=== PATIENT | male | born 1960 | race Caucasian/White ===

== ENCOUNTER 2018-04-15 15:47 | Inpatient (IN) | payer OTHER ==
[~2018-04-15] VITALS: Ht 175.3 cm; Wt 100.7 kg
[~2018-04-15 15:47] MED LIST: AMLODIPINE BESY10 MG PO; CATAPRES0.2 MG TRANSDERM; CIPRO500 MG PO; FLAGYL500 MG PO; HYDROCHLOROTH12.5 M1 PO; MULTIVITAMINS PO; PHENERGAN 25 MG25 MG PO; VICODIN 5-5001 EACH PO
[2018-04-15 15:53] VITALS: BP 131/93
[2018-04-15 16:30] LABS: ABSOLUTE BASOPHILS 0.1 thou/uL (0.0-0.2); ABSOLUTE MONOCYTES 0.9 thou/uL (0.0-1.2); ABSOLUTE NEUTROPHILS 10.9 thou/uL (1.6-8.1); BASOPHILS 0.8 %; EOSINOPHILS 0.3 %; LYMPHOCYTES 14.4 %; MCH 29.3 pg (26.0-34.0); MCHC 34.1 g/dL (28.0-37.0); MCV 85.8 fL (80.0-100.0); MONOCYTES 6.2 %; MPV 7.7 fl. (7.2-11.1); NUCLEATED RBCS 0 /100WBC; PLATELET COUNT* 309 thou/uL (150-400); POLYS 78.3 %; RBC 5.48 mil/uL (4.50-6.00); RDW-CV 14.3 % (10.5-14.5); WBC 13.9 thou/uL (4.0-11.0)
[2018-04-15 16:42] LABS: CREATININE 1.2 mg/dL (0.6-1.3)
[2018-04-15 16:47] LABS: ALBUMIN 3.9 g/dL (3.4-5.0); TOTAL BILIRUBIN 0.4 mg/dL (<0.1-1.0); TOTAL PROTEIN 7.6 g/dL (6.4-8.2)
[2018-04-15 19:40] LABS: URINE BILIRUBIN NEGATIVE (Negative); URINE BLOOD 1+ (Negative); URINE CLARITY CLEAR; URINE COLOR YELLOW; URINE GLUCOSE-RANDOM NEGATIVE (Negative); URINE KETONES 1+ (Negative); URINE LEUKOCYTES-REFLEX NEGATIVE (Negative); URINE NITRITE-REFLEX NEGATIVE (Negative); URINE PROTEIN NEGATIVE (Negative); URINE SPECIFIC GRAVITY 1.025 (1.005-1.030); URINE UROBILINOGEN 0.2 E.U./dl (0.2-1.0)
[2018-04-15 19:48] LABS: BACTERIA-REFLEX None Seen /HPF (None Seen); CASTS None Seen /LPF (None Seen); CRYSTALS None Seen /LPF (None Seen); SQUAMOUS 4-10 Moderate /LPF (0-3); URINE RBC 3-10 Few /HPF (0-2); URINE WBC-REFLEX None Seen /HPF (0-5)
[2018-04-15 22:05] VITALS: BP 131/78
[2018-04-15 22:29] LABS: INFLUENZA A ANTIGEN None Detected (None Detect); INFLUENZA B ANTIGEN None Detected (None Detect)
[2018-04-15 23:47] VITALS: BP 125/84
[2018-04-16 04:12] LABS: HEMATOCRIT 41.8 % (42.0-52.0); HEMOGLOBIN 14.1 gm/dL (14.0-18.0); MCH 29.6 pg (26.0-34.0); MCHC 33.9 g/dL (28.0-37.0); MCV 87.3 fL (80.0-100.0); MPV 7.5 fl. (7.2-11.1); NUCLEATED RBCS 0 /100WBC; PLATELET COUNT* 269 thou/uL (150-400); RBC 4.78 mil/uL (4.50-6.00); RDW-CV 13.9 % (10.5-14.5); WBC 10.5 thou/uL (4.0-11.0)
[2018-04-16 04:19] LABS: CALCIUM 8.2 mg/dL (8.5-10.1); CREATININE 1.1 mg/dL (0.6-1.3); POTASSIUM 3.3 mmol/L (3.5-5.1)
[2018-04-16] MEDS ORDERED: GLUCOSAMINE HC500 MG PO (05:03)
--- NOTE | 2018-04-16 05:46 | NUR ---
REPORT RECIEVED FROM ED. PT ADMITTED TO ROOM 108. CALL LIGHT SHOWN, FALL AGREEMENT WENT OVER, PT STATED UNDERSTANDING. ADMISSION DOCUMENTED. MEDS GIVEN PER E-MAR. IV PATENT, FLUIDS INFUSING. PICTURE OF CAT BITE TAKEN. WOUND CLEANED WITH WOUND CLEANSER. PT STATES THAT HE WAS CLEANING IT WITH HYDROGEN PEROXIDE AND ALCOHOL THEN APPLYING NEOSPORIN AT HOME. PT ALSO STATES HE TAKES AGELESS MALE SUPPLEMENT AT HOME, UNABLE TO ADD TO HOME MED LIST. WILL CONTINUE WITH PLAN OF CARE.
[2018-04-16 06:48] LABS: ABSOLUTE MONOCYTES 0.6 thou/uL (0.0-1.2); ABSOLUTE NEUTROPHILS 7.9 thou/uL (1.6-8.1)
[2018-04-16 06:53] LABS: ANISOCYTOSIS 1+; LARGE PLATELETS OCCASIONAL; PLATELET ESTIMATE ADEQUATE
[2018-04-16 08:30] VITALS: BP 141/98
--- NOTE | 2018-04-16 18:07 | NUR ---
PATIENT ALERT AND ORIENTED X 4. VITAL SIGNS STABLE ON ROOM AIR. UP AD KRISTIAN IN ROOM AND AMBULATING IN HALLWAY. DENIES NAUSEA. PATIENT STATES HE HAS SOME PAIN, BUT NOT ENOUGH TO NEED PAIN MEDICATION. IV PATENT WITH FLUIDS INFUSING. ANTIBIOTICS GIVEN PER EMAR. HOURLY ROUNDS MAINTAINED THROUGHOUT THE SHIFT. CALL LIGHT WITHIN REACH. NURSING WILL CONTINUE TO MONITOR.
[2018-04-16 19:56] VITALS: BP 134/80
[2018-04-17 04:16] VITALS: BP 143/100
--- NOTE | 2018-04-17 04:23 | NUR ---
PT REMAINED ALERT AND ORIENTED. PT SLEPT MOST OF NIGHT. PT DENIED ANY PAIN. FALL RISK PRECAUTIONS IN PLACE. HOURLY ROUNDING COMPLETED. WILL CONTINUE TO MONITOR.
[2018-04-17 04:39] LABS: ABSOLUTE BASOPHILS 0.1 thou/uL (0.0-0.2); ABSOLUTE EOSINOPHILS 0.3 thou/uL (0.0-0.7); ABSOLUTE LYMPHOCYTES 2.3 thou/uL (0.8-5.3); BASOPHILS 1.3 %; EOSINOPHILS 3.1 %; HEMATOCRIT 40.6 % (42.0-52.0); HEMOGLOBIN 13.5 gm/dL (14.0-18.0); LYMPHOCYTES 21.1 %; MCH 29.4 pg (26.0-34.0); MCHC 33.4 g/dL (28.0-37.0); MCV 88.1 fL (80.0-100.0); MONOCYTES 9.8 %; MPV 7.2 fl. (7.2-11.1); NUCLEATED RBCS 0 /100WBC; PLATELET COUNT* 239 thou/uL (150-400); POLYS 64.7 %; RBC 4.61 mil/uL (4.50-6.00); RDW-CV 13.5 % (10.5-14.5); WBC 10.7 thou/uL (4.0-11.0)
[2018-04-17 05:13] LABS: POTASSIUM 3.9 mmol/L (3.5-5.1)
[2018-04-17 08:45] VITALS: BP 152/98
--- NOTE | 2018-04-17 12:55 | CON ---
[facility] [address] [place] [address] CONSULTATION Name: FRANCINE QUINTANA JR Room: [address] [place] .R.#: [id number] Admission: 04/15/18 Attend Phys: Mehul West MD Discharge: Date of : 62 Report #: [id number] THIS REPORT FOR: //name// CC: Mehul Wu DATE OF SERVICE: 04/16/2018 INFECTIOUS DISEASE CONSULTATION: REASON FOR CONSULTATION: I was asked to evaluate concerning cat bite to his right calf. HISTORY OF PRESENT ILLNESS: The patient is a 57-year-old who 5 days ago suffered a cat bite to his right lateral calf from his own cat. He was bringing her in from the outside when his dog scared the cat and cat launched at his calf and bit him. Cat has had its rabies vaccinations. Cat has been acting fine otherwise. He is up-to-date now on his tetanus immunization for he received that the following day. He was placed on Augmentin. Subsequent to the Augmentin, he was having less pain in the calf. He then developed more GI upset with nausea and vomiting over the past 48 hours. He had some chills and sweats. No documented fever. Did have a headache. He is brought in through the Emergency Room and admitted. Over the last 12 hours, has improved with nausea, resolved. He is on Unasyn without apparent side effect. There has been no drainage from his right calf. He has noticed no pain up in his groin. The patient is a nonsmoker with no history of diabetes. ALLERGIES: None known. MEDICATIONS: As noted on his MAR including amlodipine, multivitamin, hydrochlorothiazide. PAST MEDICAL HISTORY: Left knee arthroscopy. FAMILY HISTORY: Noncontributory. SOCIAL HISTORY: Occasional cigar. No significant alcohol intake. Lives with his and children. REVIEW OF SYSTEMS: He denies any cough, sputum. No chest pain, dysuria or frequency. He has had no diarrhea. No anxiety or depression. No history of diabetes or thyroid disease. No bruising or lymphatic issues. A 10-point review of systems [place] [address] CONSULTATION Name: FRANCINE QUINTANA JR Room: [address]#: [id number] Admission: 04/15/18 Attend Phys: Mehul West MD Discharge: Date of : 62 Report #: [id number] PHYSICAL EXAMINATION: VITAL SIGNS: Afebrile, hemodynamically stable. Alert and cooperative and appeared his stated age. SKIN: Unremarkable other than what would be described in his extremity examination. No palpable lymphadenopathy. HEENT: Eyes, without scleral icterus. Mouth without mucositis. CHEST: Clear. HEART: Regular, without murmur, gallop or rub. ABDOMEN: Soft and nontender. EXTREMITIES: With 4 puncture aceves lateral mid calf on the right. There was no fluctuance or surrounding cellulitis. Mild tenderness. No lymphangitis identified. Pulses in the leg were normal. Sensation in the foot normal. NEUROLOGIC: Normal including cranial nerves. Strength and sensation throughout. Normal affect and mood. LABORATORY STUDIES: Blood cultures are negative today. Ultrasound of lower extremity was negative for DVT. Hemoglobin 14, WBC 10.5, platelet count 269,000. Differential unremarkable. Sodium 138, potassium 3.3, bicarbonate 27, creatinine 1.1. Influenza antigen negative. Chest x-ray negative. Urinalysis 1+ ketones, otherwise unremarkable. Lactate 1.6, lipase 520, liver function test normal. IMPRESSION: 1. Cat bite to the right calf improving. 2. Gastrointestinal upset. I am suspecting related to the Augmentin. So far, no evidence of secondary infectious process. Examination, I do not see any evidence of fluctuance or abscess. RECOMMENDATION: We will continue current antibiotic program. The patient is now 5 days into his treatment program. We will see how he looks tomorrow, but that should be adequate antibiotic therapy for his right calf. If he still has evidence of tenderness in the calf, may then go with clindamycin and ciprofloxacin to complete his course midweek. With the patient's GI irritation, we may be better served observing off antibiotics at the time of discharge. He will still need to have followup to ensure no evidence of abscess develops. <ELECTRONICALLY SIGNED> By: Dilan Rolon MD 04/17/18 [id number] 1950Dilan Rolon MD /nt
[2018-04-17 17:01] VITALS: BP 136/88
--- NOTE | 2018-04-17 18:32 | NUR ---
PATIENT ALERT AND ORIENTED X 4. VITAL SIGNS STABLE ON ROOM AIR. AFEBRILE. UP AD KRISTIAN IN ROOM AND AMBULATING IN HALLWAY. IV PATENT WITH FLUIDS INFUSING. ANTIBIOTICS GIVEN PER EMAR. DENIES PAIN AND NAUSEA. HOURLY ROUNDS MAINTAINED THROUGHOUT THE SHIFT. CALL LIGHT WITHIN REACH. NURSING WILL CONTINUE TO MONITOR.
[2018-04-17 19:20] VITALS: BP 130/78
--- NOTE | 2018-04-18 04:17 | NUR ---
PT REMAINED ALERT AND ORIENTED. PT DENIED ANY PAIN. PT SLEPT THROUGH THE NIGHT. FALL RISK PRECAUTIONS IN PLACE. HOURLY ROUNDING COMPLETED. WILL CONTINUE TO MONITOR.
[2018-04-18 08:05] VITALS: BP 164/95
[2018-04-18 12:01] VITALS: BP 164/95
[2018-04-18 12:11] VITALS: BP 164/95
--- NOTE | 2018-04-18 12:42 | NUR ---
Nutrition: Pt admitted with cat bite. On ABX. Albumin 3.9. Wt: 221#. Pt assessed for nursing risk 2 points. 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 Regular diet. No wt loss noted. Usual wt 215-220#. Low risk.
[2018-04-18] MEDS ORDERED: METOPROLOL ER-1 EAC1 PO (13:41)
--- NOTE | 2018-04-18 14:55 | NUR ---
PATIENT LEFT UNIT AMBULATORY WITH NURSING STAFF AT 1500. IV DC'D. EDUCATED PATIENT ON NEW MED SCRIPTS AND DISCHARGE INSTRUCTIONS. PATIENT VERBALIZED UNDERSTANDING. ALL BELONGING LEFT WITH PATIENT.
== END 2018-04-18 14:57 | disposition home or self-care (01) | DRG 605 ==
LOC: M.ERS 15:47 → M.ORTHSURG 17:06 → M.TBA-ER 17:06 → M.ORTHSURG 22:30
PROVIDERS: Nurse Practitioner Family; ADMIT Internal Medicine
DX: S81.852A Open bite, left lower leg, initial encounter (principal); R65.10 Systemic inflammatory response syndrome (SIRS) of non-infectious origin without acute organ dysfunction; L03.115 Cellulitis of right lower limb; F17.290 Nicotine dependence, other tobacco product, uncomplicated; E86.0 Dehydration; Y93.89 Activity, other specified; Y92.89 Other specified places as the place of occurrence of the external cause; Y99.8 Other external cause status; Z28.21 Immunization not carried out because of patient refusal; Z79.899 Other long term (current) drug therapy